=== PATIENT | male | born 1995 | race Caucasian/White ===

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

== ENCOUNTER → 2017-04-25 | Outpatient (CLI) | payer OTHER ==
[2017-04-25 16:44] LABS: ALBUMIN 3.9 gm/dl (3.4-5.0); ALT/SGPT 26 U/L (12-78); AST/SGOT 14 U/L (15-37); BLOOD UREA NITROGEN 20 mg/dl (7-18); CALCIUM 8.8 mg/dl (8.5-10.1); CARBON DIOXIDE 27 mmol/L (21-32); CREATININE 1.16 mg/dl (0.60-1.40); GLUCOSE 177 mg/dl (70-99); POTASSIUM 3.9 mmol/L (3.5-5.1); SODIUM 137 mmol/L (136-145)
[2017-04-25 16:47] LABS: ALKALINE PHOSPHATASE 83 U/L (45-117); CHOLESTEROL 195 mg/dl (0-200); LDL CHOLESTEROL (DIRECT) 145 mg/dl; TOTAL PROTEIN 7.6 gm/dl (6.4-8.2)
[2017-04-26 07:26] LABS: HEMOGLOBIN A1C 7.7 % (4.5-5.6)
== END | disposition home or self-care (01) ==
LOC: C.LABBC 14:06
PROVIDERS: ATTEND Nurse Practitioner Adult Health
DX: F84.5 Asperger's syndrome (principal); E10.9 Type 1 diabetes mellitus without complications; Z79.4 Long term (current) use of insulin; E78.5 Hyperlipidemia, unspecified; E55.9 Vitamin D deficiency, unspecified

== ENCOUNTER → 2017-11-11 | Outpatient (CLI) | payer OTHER ==
[2017-11-12 06:09] LABS: HEMOGLOBIN A1C 8.1 % (4.5-5.6)
== END | disposition home or self-care (01) ==
LOC: C.LAB1850 16:28
PROVIDERS: ATTEND Nurse Practitioner Adult Health
DX: Z00.00 Encounter for general adult medical examination without abnormal findings (principal); E10.9 Type 1 diabetes mellitus without complications; Z79.4 Long term (current) use of insulin; E78.5 Hyperlipidemia, unspecified; E55.9 Vitamin D deficiency, unspecified

== ENCOUNTER 2024-11-15 10:07 | Inpatient (IN) ==
[2024-11-15] MEDS ORDERED: Patient's HEIGHT &/or WEIGHT Needed STA (10:25)
[2024-11-15] MEDS ORDERED: GLUCOSE 40% GEL 15 GM TUBE PO PRN (10:27)
[2024-11-15] MEDS ORDERED: CARBOHYDRATES FOR HYPOGLYCEMIA PO PRN (10:27)
[2024-11-15] MEDS ORDERED: DEXTROSE 50% 50 ML SYRINGE IV PRN (10:27)
[2024-11-15] MEDS ORDERED: GLUCOSE 10 TAB/TUBE PO PRN (10:27)
[2024-11-15] MEDS ORDERED: STAT IV Infusion **Titration per Protocol STA ×2 (10:27→13:40)
[2024-11-15] MEDS ORDERED: GLUCAGON FOR INJ 1 MG VIAL SQ PRN (10:27)
--- NOTE | 2024-11-15 10:28 | Emergency Department Note ---
Impression & Plan DKA, type 1, Acute confusion, Leukocytosis, JUAN LUIS (acute kidney injury), Elevated lactic acid level, Elevated procalcitonin, Acute Lyme disease ED Provider Note HISTORY OF PRESENT ILLNESS: Patient is a 29-year-old male presenting with altered mental status. Grandfather helps provide history. Reports that yesterday the patient was feeling generally unwell and "laid around all day." He reports that the patient started vomiting yesterday and woke up today and was very altered and complaining of "pain everywhere." Patient is intermittently answering questions appropriately. He is a type I diabetic and has been on an insulin pump. However, the patient reports he ran out of pump site changes and is waiting for further supplies so he started to use injections of his short acting insulin. He states he took 30 units of his short acting insulin earlier this morning. Grandfather reports the patient is very confused and not acting appropriately. Patient complains of feeling short of breath and abdominal pain. ROS: as above PHYSICAL EXAM: Constitutional: Patient appears in mild distress. Smells strongly of ketones. HENT: Head: Normocephalic and atraumatic. Eyes: EOMI, PERRL Mouth/Throat: Mucous membranes moist. Neck: Trachea midline. Neck supple. Cardiovascular: RRR, No murmurs, rubs or gallops. Intact distal pulses. Pulmonary/Chest: No respiratory distress. Breath sounds clear and equal bilaterally. 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 Abdominal: Abdomen soft, no tenderness, rebound or guarding. Musculoskeletal: No edema, tenderness or deformity noted. Skin: Warm and dry. No rash, erythema, pallor or cyanosis. No insulin pump or insertion site and no Dexcom noted on the patient's body. Psychiatric: Appropriate mood and affect for situation. Neurological: Alert but slow to respond. CN II-XII grossly intact, moving all extremities equally and fully. MDM: - Vitals signs showed tachycardia and hypertension - History obtained via patient patient's grandfather, given his confusion. History as above. - Chronic conditions affecting care: hypothyroidism; DM-1 - Differential diagnoses include, but are not limited to: DKA; viral syndrome; pneumonia; dysrhythmia; electrolyte abnormality - Order placed for continuous cardiac monitoring. At this time, monitor showed rate of 115 bpm with normal sinus rhythm, per my interpretation. - External medical records reviewed. Diabetes visit note dated 10/20/2024 was reviewed. Patient follows in their clinic for type 1 diabetes. He was supposed to start having a Dexcom that day. - EKG image interpreted by myself showed normal sinus rhythm. Rate tachycardic at 107 bpm. QT 354. No acute ischemic changes. Noted to have an incomplete right bundle branch block. - Laboratory workup interpreted by myself showed leukocytosis (WBC 35.35) with neutrophil predominance; normal PT/INR; elevated lactic acid (3.8); very low bicarb (2 mmol/L); JUAN LUIS (Cr 1.42); hyperglycemia (glucose 503) with elevated anion gap (29); hypermagnesemia (Mg 2.7); hyperphosphatemia (phos 7.3); normal troponin; elevated procalcitonin (1.9) - Repeat lactate after 2L NS still uptrending at 4.6. - Negative anaplasmosis/babesia - Positive serum Lyme - Blood cultures obtained. - Patient initially given 2L NS in ER. Patient's sepsis fluid volume calculation based on ideal body weight is 2508.90 mL. An additional 1L NS ordered. - Given 2g IV rocephin empirically - VBG showed pH <7.00. POC ABG showed pH 6.796. - Potassium stable, so patient was initiated on a IV insulin drip. Patient's heart rate did improve but still remained tachycardic after fluid resuscitation. - UA negative for infection - CT abdomen/pelvis with IV contrast negative for acute pathology per radiology. - CXR image interpreted by myself is negative for pneumonia, per my interpretation. - Discussion was had with rn case manager about patient's case and need for admission - Hospitalist consulted for admission - Patient admitted to [facility] service for further evaluation and management. I have personally spent 66 minutes of critical care time in the direct management of this patient. This includes bedside care, interpretation of diagnostic studies, and testing, discussion with consultants, patient, and family members, and other required patient management activities. This 66 minutes is in excess of all separately billable procedures. 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) Diabetes mellitus type 1, uncontrolled (Chronic) Medical History Aspergers' syndrome Diabetes mellitus type 1, uncontrolled Heterozygous familial hypercholesterolemia 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 Overweight (BMI 25.0-29.9) Vitamin D deficiency Surgical History History of wisdom tooth extraction Family History Mother Depression Father Hypertension Multiple sclerosis Uncle Schizophrenia Grandmother (Paternal) Dyslipidemia Denies family history of Ovarian cancer Prostate cancer Myocardial infarction Breast cancer Colorectal cancer Social History Smoking Status: Never smoker Second Hand Exposure: Yes; Do You Dip or Chew Tobacco: No; Hx Alcohol Use: No Hx Substance Use: No Preferred Language: [place] Visual Impairment: No Limitations Hearing Ability: Normal marital status: Single Current Living Situation: Family current occupational status: employed Feels Safe at Home: Yes Childhood Exposure to Second-Hand Smoke: Yes Dental Care, Regularly: Yes Physical Activity Frequency: 5-6 Times per Week Seatbelt Use: always Sunscreen Use: No Assistive Devices: None Allergies Allergies Allergy/AdvReac Type Severity Reaction Status Date / Time No Known Drug Allergies Allergy Verified 11/15/24 12:00 Home Meds Home Medications Medication Instructions Recorded Confirmed insulin syringe-needle U-100 0.5 12/15/19 10/21/24 mL 30 gauge x 5/16" (BD SafetyGlide Insulin Syringe) cholecalciferol (vitamin D3) 1,250 0 unit PO WK 11/15/24 11/15/24 mcg (50,000 unit) capsule insulin aspart U-100 100 unit/mL 1 sliding scale dose subcut 11/15/24 11/15/24 subcutaneous solution (Novolog DIRECTED U-100 Insulin aspart) levothyroxine 100 mcg tablet 0 mcg PO DAILY 11/15/24 11/15/24 Previous Rx's Medication Instructions Recorded BD Ultra-Fine Christine Pen Needle 32 #90 ea 05/11/20 gauge x 5/32" (pen needle, diabetic) blood sugar diagnostic (Accu-Chek #120 ea 06/18/22 Guide test strips) insulin glargine 100 unit/mL 30 unit (0.3 mL) subcut DAILY #10 10/01/24 subcutaneous solution mL glucagon 1 mg/0.2 mL subcutaneous 1 mg (0.2 mL) subcut ONCE 10/21/24 auto-injector (Gvoke HypoPen hypoglycemia #0.2 mL 1-Pack) rosuvastatin 40 mg tablet 40 mg PO DAILY #90 tabs 10/21/24 Results & Data (ED) Vital Signs Vital Signs - 24 hr 11/15/24 10:09 11/15/24 10:35 11/15/24 10:42 Temperature 36 C L Temperature Source Temporal Artery Scan Pulse Rate 120 H 113 H Pulse Rate [Apical] 102 H Pulse Rhythm Pulse Rhythm [Apical] Regular Pulse Strength [Apical] Normal Respiratory Rate 18 30 H Respiratory Effort / Characteristics Non-Labored Non-Labored Spontaneous Respiratory Depth Normal Shallow Respiratory Pattern Regular Kussmaul Blood Pressure 141/91 H Blood Pressure [Left Arm] 147/91 H Blood Pressure Mean 107 Blood Pressure Mean [Left Arm] 109 Blood Pressure Position [Left Arm] Semi-fowlers Pulse Oximetry 96 100 Oxygen Delivery Method Room Air Room Air Sepsis Recent Fever Within 48 Hours No Sepsis New/Unexplained Change in Mental Status N/A Sepsis Action Taken by Nursing No Action Required 11/15/24 10:42 11/15/24 12:00 Temperature Temperature Source Pulse Rate 102 H Pulse Rate [Apical] 103 H Pulse Rhythm Regular Pulse Rhythm [Apical] Pulse Strength [Apical] Respiratory Rate 30 H 39 H Respiratory Effort / Characteristics Respiratory Depth Normal Respiratory Pattern Blood Pressure Blood Pressure [Left Arm] 160/101 H Blood Pressure Mean Blood Pressure Mean [Left Arm] 120 Blood Pressure Position [Left Arm] Semi-fowlers Pulse Oximetry 100 100 Oxygen Delivery Method Room Air Room Air Sepsis Recent Fever Within 48 Hours Sepsis New/Unexplained Change in Mental Status Sepsis Action Taken by Nursing Laboratory Data 11/15/24 10:42 11/15/24 10:42 Lab Results 11/15/24 11/15/24 11/15/24 Range/Units 10:18 10:42 10:53 WBC 35.35 H* (4.8-10.8) K/ul RBC 5.79 (4.70-6.10) M/uL Hgb 17.0 (14.0-18.0) g/dl POC Hgb (14.0-18.0) g/dl Hct 52.5 H (42.0-52.0) % POC Hct (42-52) % MCV 90.7 (80.0-100.0) fL MCH 29.4 (25.0-34.0) pg MCHC 32.4 (32.0-36.0) g/dL RDW Std Deviation 39.8 (36.4-46.3) fL RDW Coeff of Rima 12.1 (11.5-14.5) % Plt Count 384 (130-400) K/uL MPV 9.3 L (9.4-12.4) fL Immature Gran % (Auto) 3.5 % Neut % (Auto) 74.4 % Lymph % (Auto) 13.5 % [place] % (Auto) 7.8 % Eos % (Auto) 0.1 % Baso % (Auto) 0.7 % Neut # (Auto) 26.33 H (1.40-6.50) K/uL Lymph # (Auto) 4.76 H (1.20-3.40) K/uL [place] # (Auto) 2.76 H (0.11-0.59) K/uL Eos # (Auto) 0.05 (0.00-0.50) K/uL Baso # (Auto) 0.23 H (0.00-0.20) K/uL Immature Gran # (Auto) 1.22 H (0.01-0.20) K/uL Toxic Granulation 1+ Toxic Vacuolation 1+ Polychromasia 1+ PT 10.8 (9.0-12.0) Seconds INR 1.0 (0.9-1.1) POC pH (7.35-7.45) POC pCO2 (35-46) mmHg POC pO2 (80-95) mmHg POC HCO3 (19-24) kristy/L POC Base Excess (-9-1.8) kristy/L POC ABG O2 Sat (90-95) % VBG pH < 7.00 L (7.36-7.41) VBG pCO2 14 L (38-50) mmHg VBG pO2 99 mmHg VBG HCO3 TNP VBG O2 Saturation 97.4 % VBG Base Excess TNP POC Sodium (135-144) mmol/L Sodium 136 (136-145) mmol/L POC Potassium (3.3-5.0) mmol/L Potassium 5.1 (3.5-5.1) mmol/L POC Chloride (101-112) mmol/L Chloride 105 (98-107) mmol/L Carbon Dioxide 2 L* (21-32) mmol/L POC Total CO2 (24-31) mmol/L Anion Gap 29 H (3-11) POC Anion Gap POC BUN (7-18) mg/dl BUN 26 H (6-23) mg/dl Creatinine 1.42 H (0.6-1.4) mg/dl POC Creatinine (0.6-1.3) mg/dl Est Cr Clr Drug Dosing 88.3 ml/min eGFR 69.46 BUN/Creatinine Ratio 18.3 (10-20) Glucose 503 H* (70-99(Fasting)) mg/dl POC Glucose 486 H* 479 H* (70-99) mg/dl POC Glucose (other) (70-99) mg/dl Lactate (0.4-2.0) mmol/L Calcium 9.7 (8.6-10.3) mg/dl POC Ioniz Calcium Johnnie (1.12-1.32) mmol/l Phosphorus 7.3 H (2.5-4.9) mg/dl Magnesium 2.7 H (1.7-2.4) mg/dl Total Bilirubin 0.4 (0.2-1.0) mg/dl AST 20 (13-39) U/L ALT 32 (7-52) U/L Alkaline Phosphatase 139 H (34-104) U/L Troponin I High Sens 14.4 (0-20) pg/ml Total Protein 9.2 H (6.0-8.3) gm/dl Albumin 5.0 (3.4-5.0) gm/dl Globulin 4.2 H (2.5-4.0) gm/dl Albumin/Globulin Ratio 1.2 (0.9-2) Lipase 5 L (11-82) U/L Procalcitonin 1.90 H (0-0.5) ng/ml Urine Comment Anaplasma Smear See Comment Babesia Smear See Comment Lyme Disease Screen Positive H (Negative) 11/15/24 11/15/24 11/15/24 Range/Units 10:55 11:10 11:49 WBC (4.8-10.8) K/ul RBC (4.70-6.10) M/uL Hgb (14.0-18.0) g/dl POC Hgb 15.0 16.7 (14.0-18.0) g/dl Hct (42.0-52.0) % POC Hct 44 49 (42-52) % MCV (80.0-100.0) fL MCH (25.0-34.0) pg MCHC (32.0-36.0) g/dL RDW Std Deviation (36.4-46.3) fL RDW Coeff of Rima (11.5-14.5) % Plt Count (130-400) K/uL MPV (9.4-12.4) fL Immature Gran % (Auto) % Neut % (Auto) % Lymph % (Auto) % [place] % (Auto) % Eos % (Auto) % Baso % (Auto) % Neut # (Auto) (1.40-6.50) K/uL Lymph # (Auto) (1.20-3.40) K/uL [place] # (Auto) (0.11-0.59) K/uL Eos # (Auto) (0.00-0.50) K/uL Baso # (Auto) (0.00-0.20) K/uL Immature Gran # (Auto) (0.01-0.20) K/uL Toxic Granulation Toxic Vacuolation Polychromasia PT (9.0-12.0) Seconds INR (0.9-1.1) POC pH 6.80 L* (7.35-7.45) POC pCO2 14 L (35-46) mmHg POC pO2 73 L (80-95) mmHg POC HCO3 2 L (19-24) kristy/L POC Base Excess < -30.0 L (-9-1.8) kristy/L POC ABG O2 Sat 75.0 L (90-95) % VBG pH (7.36-7.41) VBG pCO2 (38-50) mmHg VBG pO2 mmHg VBG HCO3 VBG O2 Saturation % VBG Base Excess POC Sodium 141 141 (135-144) mmol/L Sodium (136-145) mmol/L POC Potassium 5.1 H 5.4 H (3.3-5.0) mmol/L Potassium (3.5-5.1) mmol/L POC Chloride 120 H (101-112) mmol/L Chloride (98-107) mmol/L Carbon Dioxide (21-32) mmol/L POC Total CO2 < 5 L* < 5 L* (24-31) mmol/L Anion Gap (3-11) POC Anion Gap TNP POC BUN 25 H (7-18) mg/dl BUN (6-23) mg/dl Creatinine (0.6-1.4) mg/dl POC Creatinine 0.9 (0.6-1.3) mg/dl Est Cr Clr Drug Dosing ml/min eGFR BUN/Creatinine Ratio (10-20) Glucose (70-99(Fasting)) mg/dl POC Glucose (70-99) mg/dl POC Glucose (other) 467 H* (70-99) mg/dl Lactate 3.8 H* (0.4-2.0) mmol/L Calcium (8.6-10.3) mg/dl POC Ioniz Calcium Johnnie 1.15 (1.12-1.32) mmol/l Phosphorus (2.5-4.9) mg/dl Magnesium (1.7-2.4) mg/dl Total Bilirubin (0.2-1.0) mg/dl AST (13-39) U/L ALT (7-52) U/L Alkaline Phosphatase (34-104) U/L Troponin I High Sens (0-20) pg/ml Total Protein (6.0-8.3) gm/dl Albumin (3.4-5.0) gm/dl Globulin (2.5-4.0) gm/dl Albumin/Globulin Ratio (0.9-2) Lipase (11-82) U/L Procalcitonin (0-0.5) ng/ml Urine Comment Anaplasma Smear Babesia Smear Lyme Disease Screen (Negative) 11/15/24 11/15/24 11/15/24 Range/Units 11:59 12:01 12:31 WBC (4.8-10.8) K/ul RBC (4.70-6.10) M/uL Hgb (14.0-18.0) g/dl POC Hgb (14.0-18.0) g/dl Hct (42.0-52.0) % POC Hct (42-52) % MCV (80.0-100.0) fL MCH (25.0-34.0) pg MCHC (32.0-36.0) g/dL RDW Std Deviation (36.4-46.3) fL RDW Coeff of Rima (11.5-14.5) % Plt Count (130-400) K/uL MPV (9.4-12.4) fL Immature Gran % (Auto) % Neut % (Auto) % Lymph % (Auto) % [place] % (Auto) % Eos % (Auto) % Baso % (Auto) % Neut # (Auto) (1.40-6.50) K/uL Lymph # (Auto) (1.20-3.40) K/uL [place] # (Auto) (0.11-0.59) K/uL Eos # (Auto) (0.00-0.50) K/uL Baso # (Auto) (0.00-0.20) K/uL Immature Gran # (Auto) (0.01-0.20) K/uL Toxic Granulation Toxic Vacuolation Polychromasia PT (9.0-12.0) Seconds INR (0.9-1.1) POC pH (7.35-7.45) POC pCO2 (35-46) mmHg POC pO2 (80-95) mmHg POC HCO3 (19-24) kristy/L POC Base Excess (-9-1.8) krisyt/L POC ABG O2 Sat (90-95) % VBG pH (7.36-7.41) VBG pCO2 (38-50) mmHg VBG pO2 mmHg VBG HCO3 VBG O2 Saturation % VBG Base Excess POC Sodium (135-144) mmol/L Sodium (136-145) mmol/L POC Potassium (3.3-5.0) mmol/L Potassium (3.5-5.1) mmol/L POC Chloride (101-112) mmol/L Chloride (98-107) mmol/L Carbon Dioxide (21-32) mmol/L POC Total CO2 (24-31) mmol/L Anion Gap (3-11) POC Anion Gap POC BUN (7-18) mg/dl BUN (6-23) mg/dl Creatinine (0.6-1.4) mg/dl POC Creatinine (0.6-1.3) mg/dl Est Cr Clr Drug Dosing ml/min eGFR BUN/Creatinine Ratio (10-20) Glucose (70-99(Fasting)) mg/dl POC Glucose 424 H* (70-99) mg/dl POC Glucose (other) (70-99) mg/dl Lactate 4.6 H* (0.4-2.0) mmol/L Calcium (8.6-10.3) mg/dl POC Ioniz Calcium Johnnie (1.12-1.32) mmol/l Phosphorus (2.5-4.9) mg/dl Magnesium (1.7-2.4) mg/dl Total Bilirubin (0.2-1.0) mg/dl AST (13-39) U/L ALT (7-52) U/L Alkaline Phosphatase (34-104) U/L Troponin I High Sens (0-20) pg/ml Total Protein (6.0-8.3) gm/dl Albumin (3.4-5.0) gm/dl Globulin (2.5-4.0) gm/dl Albumin/Globulin Ratio (0.9-2) Lipase (11-82) U/L Procalcitonin (0-0.5) ng/ml Urine Comment Anaplasma Smear Babesia Smear Lyme Disease Screen (Negative) 11/15/24 Range/Units 12:58 WBC (4.8-10.8) K/ul RBC (4.70-6.10) M/uL Hgb (14.0-18.0) g/dl POC Hgb (14.0-18.0) g/dl Hct (42.0-52.0) % POC Hct (42-52) % MCV (80.0-100.0) fL MCH (25.0-34.0) pg MCHC (32.0-36.0) g/dL RDW Std Deviation (36.4-46.3) fL RDW Coeff of Rima (11.5-14.5) % Plt Count (130-400) K/uL MPV (9.4-12.4) fL Immature Gran % (Auto) % Neut % (Auto) % Lymph % (Auto) % [place] % (Auto) % Eos % (Auto) % Baso % (Auto) % Neut # (Auto) (1.40-6.50) K/uL Lymph # (Auto) (1.20-3.40) K/uL [place] # (Auto) (0.11-0.59) K/uL Eos # (Auto) (0.00-0.50) K/uL Baso # (Auto) (0.00-0.20) K/uL Immature Gran # (Auto) (0.01-0.20) K/uL Toxic Granulation Toxic Vacuolation Polychromasia PT (9.0-12.0) Seconds INR (0.9-1.1) POC pH (7.35-7.45) POC pCO2 (35-46) mmHg POC pO2 (80-95) mmHg POC HCO3 (19-24) kristy/L POC Base Excess (-9-1.8) kristy/L POC ABG O2 Sat (90-95) % VBG pH (7.36-7.41) VBG pCO2 (38-50) mmHg VBG pO2 mmHg VBG HCO3 VBG O2 Saturation % VBG Base Excess POC Sodium (135-144) mmol/L Sodium (136-145) mmol/L POC Potassium (3.3-5.0) mmol/L Potassium (3.5-5.1) mmol/L POC Chloride (101-112) mmol/L Chloride (98-107) mmol/L Carbon Dioxide (21-32) mmol/L POC Total CO2 (24-31) mmol/L Anion Gap (3-11) POC Anion Gap POC BUN (7-18) mg/dl BUN (6-23) mg/dl Creatinine (0.6-1.4) mg/dl POC Creatinine (0.6-1.3) mg/dl Est Cr Clr Drug Dosing ml/min eGFR BUN/Creatinine Ratio (10-20) Glucose (70-99(Fasting)) mg/dl POC Glucose 367 H* (70-99) mg/dl POC Glucose (other) (70-99) mg/dl Lactate (0.4-2.0) mmol/L Calcium (8.6-10.3) mg/dl POC Ioniz Calcium Johnnie (1.12-1.32) mmol/l Phosphorus (2.5-4.9) mg/dl Magnesium (1.7-2.4) mg/dl Total Bilirubin (0.2-1.0) mg/dl AST (13-39) U/L ALT (7-52) U/L Alkaline Phosphatase (34-104) U/L Troponin I High Sens (0-20) pg/ml Total Protein (6.0-8.3) gm/dl Albumin (3.4-5.0) gm/dl Globulin (2.5-4.0) gm/dl Albumin/Globulin Ratio (0.9-2) Lipase (11-82) U/L Procalcitonin (0-0.5) ng/ml Urine Comment Anaplasma Smear Babesia Smear Lyme Disease Screen (Negative) Administered Medications Insulin Human Regular 250 (units/ Sodium Chloride) 250 mls @ 9.7 mls/hr IV .Q24H VENUS; Protocol Stop: 12/15/24 10:29 Last Titration: 11/15/24 13:08 Dose: 9.7 unit/hr, 9.7 mls/hr Documented By: ALICIA Co-signed By: BETTY Titration: 11/15/24 12:13 Dose: 9.7 unit/hr, 9.7 mls/hr Documented By: ALICIA Co-signed By: BETTY Admin: 11/15/24 10:57 Dose: 8.1 unit/hr, 8.1 mls/hr Documented By: Co-signed By: DENISE Sodium Chloride (Nss) 1,000 mls @ 999 mls/hr IV .Q1H1M ONE Stop: 11/15/24 13:42 Last Admin: 11/15/24 13:00 Dose: 999 mls/hr Documented By: ALICIA Insulin Aspart (Insulin Aspart Per Unit Charge) 0 units SC ACHS VENUS Stop: 12/15/24 11:29 Last Admin: 11/15/24 11:36 Dose: Not Given Documented By: ALICIA Co-signed By: BETYT Discontinued Medications Sodium Chloride (Nss) 2,000 mls @ 999 mls/hr IV .Q2H1M ONE Stop: 11/15/24 12:25 Last Infusion: 11/15/24 12:50 Dose: Infused Documented By: Admin: 11/15/24 10:39 Dose: 999 mls/hr Documented By: Ceftriaxone Sodium (Rocephin) 2,000 mg in 50 mls @ 100 mls/hr IV NOW STA Stop: 11/15/24 12:06 Last Infusion: 11/15/24 13:00 Dose: Infused Documented By: Admin: 11/15/24 12:30 Dose: 100 mls/hr Documented By: ALICIA Ioversol (Optiray 320 100ml) 90 ml IV ONCE ONE Stop: 11/15/24 12:21 Last Admin: 11/15/24 12:20 Dose: 90 ml Documented By: YAQUELIN Miscellaneous (Dka Goal Range 150-250 Mg/Dl) 1 each N/A ONE ONE Stop: 11/15/24 10:28 Last Admin: 11/15/24 12:10 Dose: Not Given Documented By: ALICIA Imaging Data Radiologist's Impression: Abdomen/Pelvis CT 11/15/24 11:54 CT SCAN OF THE ABDOMEN AND PELVIS WITH IV CONTRAST CLINICAL HISTORY: Generalized abdominal pain. Vomiting. Diabetic ketoacidosis. COMPARISON STUDY: No priors TECHNIQUE: Following the IV administration of 90 cc of Optiray 320, CT scan of the abdomen and pelvis is performed from the lung bases to the proximal femora. Images are reviewed in the axial, sagittal, and coronal planes. IV contrast was administered without complication. A dose lowering technique was utilized adhering to the principles of ALARA. The examination is degraded by motion artifact. CT DOSE: 967.2 mGy.cm FINDINGS: Lung bases: The heart is normal in size and without pericardial effusion. The lung bases are clear. Liver: The contrast-enhanced liver is normal in size and contour. Attenuation is diffusely diminished indicating steatosis. There is no intrahepatic biliary ductal dilatation. The hepatic veins and portal veins are patent. Gallbladder: Unremarkable. Spleen: Normal in size and attenuation. Pancreas: Unremarkable. Adrenal glands: Unremarkable. Kidneys: The contrast enhanced kidneys are normal in size and without hydronephrosis. Fullness of the renal collecting systems is likely related to bladder distention. The kidneys enhance symmetrically. Abdominal vasculature: The abdominal aorta is normal in course and caliber. Bowel: No bowel obstruction is seen. The appendix is well-visualized and normal. Peritoneum: There is no intraperitoneal free air or abdominal ascites. There is a fat-containing umbilical hernia. Lymphadenopathy: None. Pelvic viscera: The bladder is markedly distended but otherwise normal in appearance. The prostate and seminal vesicles are normal as imaged Skeletal structures: No lytic or blastic lesions are seen. IMPRESSION: 1. No acute infectious or inflammatory findings are identified in the abdomen or pelvis. 2. Marked bladder distention. 3. Hepatic steatosis. 4. Additional findings as above. ACT 112: Negative or not required by law. Electronically signed by: Bebeto Mancini M.D. 11/15/2024 12:49 PM Chest X-Ray 11/15/24 11:55 SINGLE VIEW CHEST CLINICAL HISTORY: Sepsis FINDINGS: 2 AP, portable, upright chest radiographs are obtained. No prior studies are available for comparison at the time of dictation. The cardiomediastinal silhouette is unremarkable. The lungs and pleural spaces are clear. No pneumothorax is seen. The bony thorax is grossly intact. IMPRESSION: No active disease in the chest. ACT 112: Negative or not required by law. Electronically signed by: Bebeto Mancini M.D. 11/15/2024 12:49 PM Discharge Plan Visit Data Chief Complaint: Illness Stated Complaint: FEELS LIKE DYING PT STATED ED Provider: Melissa White Discharge Problem: DKA, type 1, Acute confusion, Leukocytosis, JUAN LUIS (acute kidney injury), Elevated lactic acid level, Elevated procalcitonin, Acute Lyme disease Condition: Serious Forms Stand Alone Forms: [facility] Prescriptions Prescriptions: No Action (DME) pen needle, diabetic [BD Ultra-Fine Christine Pen Needle] 32 gauge x 5/32" needle See Rx Instructions .ROUTE .MEDSUPPLY Qty: 90 0RF Rx Instructions: once daily for pump failure insulin glargine U-300 conc [Toujeo SoloStar U-300 Insulin] 300 unit/mL (1.5 mL) insulin pen 0 unit subcut DIRECTED 0RF Patient Comments: Unable to verify w/ pt at this date/time. Not on file w/ Pharmacy. Original Directions: 0 units subcut as directed. 11/15/24 insulin glargine 100 unit/mL solution 30 unit subcut DAILY Qty: 10 3RF Rx Instructions: back up for pump failure (DME) insulin syringe-needle U-100 [BD SafetyGlide Insulin Syringe] 0.5 mL 30 gauge x 5/16" syringe See Rx Instructions .ROUTE .MEDSUPPLY Rx Instructions: use 4 per day (DME) Accu-Chek Guide test strips Strip See Rx Instructions .Route Qty: 120 5RF Rx Instructions: test 4 times daily Gvoke HypoPen 1-Pack 1 mg/0.2 mL auto-injector 1 mg subcut ONCE Qty: 0.2 0RF Rx Instructions: as needed for hypoglycemia rosuvastatin 40 mg tablet 40 mg PO DAILY Qty: 90 3RF levothyroxine 100 mcg tablet 0 mcg PO DAILY Patient Comments: Unable to verify w/ pt at this date/time. Not on file w/ Pharmacy. Original Directions: 100mcg by mouth once daily. 11/15/24 insulin aspart U-100 [Novolog U-100 Insulin aspart] 100 unit/mL solution 1 sliding scale dose subcut DIRECTED Rx Instructions: subcutaneously inject 1 unit per 7 carbs; TDD 110 units; cholecalciferol (vitamin D3) 1,250 mcg (50,000 unit) capsule 0 unit PO WK Patient Comments: Unable to verify w/ pt at this date/time. Per pharmacy, never filled. Original Directions: 50,000 unit once weekly. 11/15/24 Referrals Referrals: Araceli Macias MD [Primary Care Provider] -
[2024-11-15] MEDS: SODIUM CHLORIDE 0.9% 2,000 ML IV ONE (10:39)
[2024-11-15 10:51] LABS: Oxygen Saturation VBG 97.4 %; PCO2 VBG 14 mmHg (38-50); PO2 VBG 99 mmHg; pH VBG < 7.00 (7.36-7.41)
[2024-11-15] MEDS: INSULIN REGULAR 250 UNITS in SODIUM CHLORIDE 0.9% 247.5 ML IV SCH (10:57)
[2024-11-15 11:05] LABS: Hematocrit (blood only) 52.5 % (42.0-52.0); Hemoglobin 17.0 g/dl (14.0-18.0); Mean Corpuscular Hemoglobin 29.4 pg (25.0-34.0); Mean Corpuscular Volume 90.7 fL (80.0-100.0); Platelet Count 384 K/uL (130-400); RDW Standard Deviation 39.8 fL (36.4-46.3); Red Blood Count 5.79 M/uL (4.70-6.10)
[2024-11-15 11:06] LABS: White Blood Count 35.35 K/ul (4.8-10.8)
[2024-11-15 11:20] LABS: Immature Granulocytes # (auto) 1.22 K/uL (0.01-0.20); Immature Granulocytes % (auto) 3.5 %; Polychromasia 1+; Toxic Granulation 1+; Toxic Vacuolation 1+
[2024-11-15 11:25] LABS: INR 1.0 (0.9-1.1); Prothrombin Time 10.8 Seconds (9.0-12.0)
[2024-11-15] MEDS: INSULIN ASPART PER UNIT CHARGE SC SCH (11:36)
[2024-11-15 11:44] LABS: Lyme Screen Rflx Confirmation Positive (Negative)
[2024-11-15 11:51] LABS: Alanine Aminotransferase 32.0 U/L (7-52); Albumin Globulin Ratio 1.2 (0.9-2); Alkaline Phosphatase 139.0 U/L (34-104); Anion Gap 29.0 (3-11); Bilirubin,Total 0.4 mg/dl (0.2-1.0); Blood Urea Nitrogen 26.0 mg/dl (6-23); Calcium 9.7 mg/dl (8.6-10.3); Carbon Dioxide 2.0 mmol/L (21-32); Chloride 105.0 mmol/L (98-107); Creatinine Clr Calc Pharmacy 88.3 ml/min; Globulin 4.2 gm/dl (2.5-4.0); Glucose 503.0 mg/dl (70-99(Fasting)); Lipase 5.0 U/L (11-82); Magnesium 2.7 mg/dl (1.7-2.4); Potassium 5.1 mmol/L (3.5-5.1); Sodium 136.0 mmol/L (136-145); Total Protein 9.2 gm/dl (6.0-8.3)
[2024-11-15 12:03] LABS: iSTAT Art Bld Gas Base Excess < -30.0 meg/L (-9-1.8)
[2024-11-15] MEDS: DKA GOAL RANGE 150-250 mg/dl ONE (12:10)
[2024-11-15] MEDS: OPTIRAY 320 100ml IV ONE (12:20)
[2024-11-15] MEDS: cefTRIAXone SODIUM 2,000 MG/50 ML BAG IV STA (12:30)
--- NOTE | 2024-11-15 12:50 | XRay Report ---
SINGLE VIEW CHEST CLINICAL HISTORY: Sepsis FINDINGS: 2 AP, portable, upright chest radiographs are obtained. No prior studies are available for comparison at the time of dictation. The cardiomediastinal silhouette is unremarkable. The lungs and pleural spaces are clear. No pneumothorax is seen. The bony thorax is grossly intact. IMPRESSION: No active disease in the chest. ACT 112: Negative or not required by law. Electronically signed by: Bebeto Mancini M.D. 11/15/2024 12:49 PM
--- NOTE | 2024-11-15 12:50 | CT Scan Report ---
CT SCAN OF THE ABDOMEN AND PELVIS WITH IV CONTRAST CLINICAL HISTORY: Generalized abdominal pain. Vomiting. Diabetic ketoacidosis. COMPARISON STUDY: No priors TECHNIQUE: Following the IV administration of 90 cc of Optiray 320, CT scan of the abdomen and pelvi s is performed from the lung bases to the proximal femora. Images are reviewed in the axial, sagittal , and coronal planes. IV contrast was administered without complication. A dose lowering technique wa s utilized adhering to the principles of ALARA. The examination is degraded by motion artifact. CT DOSE: 967.2 mGy.cm FINDINGS: Lung bases: The heart is normal in size and without pericardial effusion. The lung bases are clear. Liver: The contrast-enhanced liver is normal in size and contour. Attenuation is diffusely diminishe d indicating steatosis. There is no intrahepatic biliary ductal dilatation. The hepatic veins and por stanley veins are patent. Gallbladder: Unremarkable. Spleen: Normal in size and attenuation. Pancreas: Unremarkable. Adrenal glands: Unremarkable. Kidneys: The contrast enhanced kidneys are normal in size and without hydronephrosis. Fullness of the renal collecting systems is likely related to bladder distention. The kidneys enhance symmetrically. Abdominal vasculature: The abdominal aorta is normal in course and caliber. Bowel: No bowel obstruction is seen. The appendix is well-visualized and normal. Peritoneum: There is no intraperitoneal free air or abdominal ascites. There is a fat-containing umbi lical hernia. Lymphadenopathy: None. Pelvic viscera: The bladder is markedly distended but otherwise normal in appearance. The prostate an d seminal vesicles are normal as imaged Skeletal structures: No lytic or blastic lesions are seen. IMPRESSION: 1. No acute infectious or inflammatory findings are identified in the abdomen or pelvis. 2. Marked bladder distention. 3. Hepatic steatosis. 4. Additional findings as above. ACT 112: Negative or not required by law. Electronically signed by: Bebeto Mancini M.D. 11/15/2024 12:49 PM
[2024-11-15] MEDS: SODIUM CHLORIDE 0.9% 1,000 ML IV ONE ×2 (13:00→13:52)
--- NOTE | 2024-11-15 13:13 | History & Physical Report ---
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 Has an insulin pump but not sure if it has been functioning properly the past 2- 3 days. Notes he has felt like this previously, but hasn't gotten this bad before. Requires admission for medical stabilization, continuous VS monitoring, and serial labs to ensure resolution. #Diabetic Ketoacidosis #DM1, poorly controlled All relevant labs improving: Glucose 503 -> 302 , Lactate 4.6 -> 2.6, anion gap 29 -> 21 S/p 3L NS bolus, currently receiving KCl/D5/NS at 150cc/hr Continue IV fluids, IV insulin per protocol, switch to subQ basal/bolus once anion gap has resolved Obtaining q1h POC glucose, q4 BMP, VBG, mag, phos; CBC AM Pharm glycemic consult following, appreciate adjustments as necessary - CBC, BMP, VBG AM #Leukocytosis WBCs 35.35 initially, reported to have some vomiting and possible urinary retention however those symptoms have improved - started on ceftriaxone IV empirically, however in the absence of no overt signs or symptoms of infection likely the elevation is due to significant acidosis and the stress on the body that has caused Discontinuing CTX at this time, may add abx back on if clinical suspicion points to infectious etiology #Acute Kidney Injury Likely 2/2 dehydration, lack of kidney perfusion Creatinine resolving 1.42 -> 1.27 Continue IVF, may start PO intake once anion gap resolves As he has tolerated water already, allowing some gatorade per request #Executive functioning deficit Will need extra help in going over pump instructions and return instructions prior to discharge, with grandfather too so he know what to look out for and to act sooner clinical informatics educator and case mgmt consulted #Lyme screen positive However negative Lyme IgM and IgG Anaplasma and Babesia also appear negative Will ask pt specifically about Lyme or tick concern in AM, but no current concern of tickborne illness Chronic, stable: hypothyroidism- continue levothyroxine familial hypercholesterolemia- may hold statin until diet once AG resolved VTE ppx: SCDs Dispo: PCU tele History of Present Illness Chief Complaint: DKA Primary Care Provider: Araceli Macias MD Devan is a 29yo M with PMHx diabetes mellitus type 1 on insulin pump, hypoth yroidism due to Delfin's thyroiditis, heterozygous familial hypercholesterolemia, and executive function disorder admitted for DKA. States he started feeling bad 2-3 days ago with abdominal pain, vomiting, and generalized weakness. Was brought in today by grandfather but he is not present at current encounter. States he has an insulin pump but not sure if it has been functioning properly. Notes he has felt like this previously, but hasn't gotten this bad before. Currently noting pain "all over" especially the bottom of his ribs, sore throat, and significant thirst. No nausea, vomiting, or abdominal pain at htis time. States he usually has to take "at least 72" units of insulin per day combined long- and short-acting. Denies recent fever, headache, neck pain, dysuria. ER course: 1L NS bolus x3 - started on insulin at 6.2 units/hr - started on ceftriaxone - morphine 1mg IV Living situ: lives in private home with grandfather, however based on pt's low level of executive functioning likely doesn't have the support he needs Allergies Allergy/AdvReac Type Severity Reaction Status Date / Time No Known Drug Allergies Allergy Verified 11/15/24 12:00 Home Medications Medication Instructions Recorded Confirmed Type insulin syringe-needle U-100 0.5 12/15/19 10/21/24 History mL 30 gauge x 5/16" (BD SafetyGlide Insulin Syringe) BD Ultra-Fine Christine Pen Needle 32 #90 ea 05/11/20 10/21/24 Rx gauge x 5/32" (pen needle, diabetic) blood sugar diagnostic (Accu-Chek #120 ea 06/18/22 10/21/24 Rx Guide test strips) insulin glargine 100 unit/mL 30 unit (0.3 mL) subcut DAILY #10 10/01/24 11/15/24 Rx subcutaneous solution mL glucagon 1 mg/0.2 mL subcutaneous 1 mg (0.2 mL) subcut ONCE 10/21/24 11/15/24 Rx auto-injector (Gvoke HypoPen hypoglycemia #0.2 mL 1-Pack) rosuvastatin 40 mg tablet 40 mg PO DAILY #90 tabs 10/21/24 11/15/24 Rx cholecalciferol (vitamin D3) 1,250 0 unit PO WK 11/15/24 11/15/24 History mcg (50,000 unit) capsule insulin aspart U-100 100 unit/mL 1 sliding scale dose subcut 11/15/24 11/15/24 History subcutaneous solution (Novolog DIRECTED U-100 Insulin aspart) levothyroxine 100 mcg tablet 0 mcg PO DAILY 11/15/24 11/15/24 History Past Med/Surg History Problem List (Updated 11/15/24 @ 14:36 by Bahman Plata DO) DKA (diabetic ketoacidosis) Acute Lyme disease (Acute) Elevated procalcitonin (Acute) Elevated lactic acid level (Acute) JUAN LUIS (acute kidney injury) (Acute) Leukocytosis (Acute) Acute confusion (Acute) DKA, type 1 (Acute) Executive function deficit Vitamin D deficiency (Chronic) Overweight (BMI 25.0-29.9) (Chronic) Heterozygous familial hypercholesterolemia (Chronic) 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 (Chronic) Diabetes mellitus type 1, uncontrolled (Chronic) Medical History Aspergers' syndrome Diabetes mellitus type 1, uncontrolled Heterozygous familial hypercholesterolemia 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 Overweight (BMI 25.0-29.9) Vitamin D deficiency Surgical History History of wisdom tooth extraction Family History Mother Depression Father Hypertension Multiple sclerosis Uncle Schizophrenia Grandmother (Paternal) Dyslipidemia Denies family history of Ovarian cancer Prostate cancer Myocardial infarction Breast cancer Colorectal cancer Social History Smoking Status: Never smoker Second Hand Exposure: Yes; Do You Dip or Chew Tobacco: No; Hx Alcohol Use: No Hx Substance Use: No Preferred Language: Khmer Visual Impairment: No Limitations Hearing Ability: Normal Cylinder Steamer Required: No Beliefs That Will Affect Care: None marital status: Single Current Living Situation: Other Current Living Situation Comment: grandfather current occupational status: employed Other Information That Helps Us Care for You: No Feels Safe at Home: Yes Safety Concerns: Feels Safe At This Time Childhood Exposure to Second-Hand Smoke: Yes Dental Care, Regularly: Yes Physical Activity Frequency: 5-6 Times per Week Seatbelt Use: always Sunscreen Use: No Assistive Devices: Other Assistive Devices Comment: insulin pump Physical Exam Physical Exam: Constitutional: A&Ox3, appearing in moderate distress, tachypneic HEENT: dry oral mucus membranes; EOM intact, anicteric sclerae CV: tachycardic regular rhythm, +s1/s2, no m/r/g, radial pulses 2+ b/l Respiratory: clear to auscultation b/l, no w/r/R GI/Abd: +BS, abdomen soft, no hepatosplenomegaly, nondistended, nontender to palpation MSK: 5/5 strength in b/l UE and LE, no gross deformities Skin: mild papular rash to lower half of b/l LE without base of erythema/swelling/warmth Neuro: no facial droop, no focal deficits, wiggles toes on command Results & Data Results & Data Vital Signs (Past 12 Hours) Vital Signs Temp Pulse Pulse Resp BP BP Pulse Ox 11/15/24 12:00 103 H 39 H 160/101 H 100 11/15/24 10:42 102 H 30 H 100 11/15/24 10:42 102 H 30 H 147/91 H 100 11/15/24 10:35 113 H 11/15/24 10:09 36 C L 120 H 18 141/91 H 96 O2 Del Method 11/15/24 12:00 Room Air 11/15/24 10:42 Room Air 11/15/24 10:42 Room Air 11/15/24 10:35 11/15/24 10:09 Room Air Supervising Physician Co-Signing Physician Notes I personally examined the patient and verified all gallegos points of history and exam, discussed case, and agree with decision making with Dr Plata Feeling better. Very thirsty. Vitals noted, in general he is awake and alert pleasant a little bit restless but no acute distress. HEENT normocephalic atraumatic mucous membranes dry. Cardio still tachycardic, breathing by the time I see him is no longer rapid or labored. Neuro shows cranial nerves II through XII are grossly intact gross motor and sensory are intact. Labs and diagnostics noted. DKAappears to be due to his pump running out of insulin. The very difficult part will be that it seems that his difficulty in executive function may make it hard for him to understand the critical importance of glycemic management. Tried to start to discuss rhythm and very concrete terms, but obviously right now he is also quite sick so definitely not the best time to be able to make a good connection or fill knowledge gapswe will continue to try. IV fluids, insulin management, supportive care. His leukocytosis is almost certainly stress responseno obvious focal signs or symptoms of infection. Continue to follow, but no clear need for ongoing empiric antibiotics. Lyme screen positivenonspecific, no clear symptoms, but we are in an endemic area. Follow labs and treat if positive. Otherwise as above. Resident Activity Tracking Resident Involvement: Resident Care Provided Care Provided: Adult Hospital Medicine (1) DKA (diabetic ketoacidosis) Diabetes mellitus complication detail: without coma Diabetes mellitus type: type 1 Qualified Code(s): E10.10 - Type 1 diabetes mellitus with ketoacidosis without coma (2) Diabetes mellitus type 1, uncontrolled Glycemic state: with hyperglycemia Qualified Code(s): E10.65 - Type 1 diabetes mellitus with hyperglycemia
[2024-11-15 13:28] LABS: Appearance Urine Clear (Clear); Bacteria Urine Automated None Seen (None Seen); Epithelial Cell Urine Auto 0-2 /hpf (0-2); Glucose Urine UA 3+ (Negative); RBC Urine Automated 0-2 /hpf (0-2); WBC Urine Automated 0-5 /hpf (0-5)
[2024-11-15] MEDS ORDERED: PHARMACY GLYCEMIC MGMT CONSULT PRN (13:40)
[2024-11-15] MEDS ORDERED: INSULIN REGULAR 250 UNITS in SODIUM CHLORIDE 0.9% 247.5 ML IV SCH (13:45)
[2024-11-15] MEDS ORDERED: PENDING 1/2NSS+20mEq KCL IVF SCH (13:45)
[2024-11-15] MEDS ORDERED: PENDING D5 1/2NS+20mEq KCL IVF SCH (13:45)
[2024-11-15 13:51] LABS: Cast Urine Automated 0-2 /lpf (0-2)
[2024-11-15] MEDS ORDERED: DKA GOAL RANGE 150-250 mg/dl ONE (13:51)
[2024-11-15] MEDS: MoRPHine SULFATE 2 MG/ML CARP IV STA (13:52)
[2024-11-15 14:26] LABS: Oxygen Saturation VBG 81.0 %; PCO2 VBG 27 mmHg (38-50); PO2 VBG 50 mmHg; pH VBG < 7.00 (7.36-7.41)
--- NOTE | 2024-11-15 14:43 | Pharmacy Report ---
Pharmacy Glycemic Short Note 2 - Date of Service November 15, 2024 - Glycemic Short BSG Results (Last 24 hours): 11/15/24 11/15/24 11/15/24 10:18 10:42 10:53 Glucose 503 H* POC Glucose 486 H* 479 H* POC Glucose (other) 11/15/24 11/15/24 11/15/24 11:10 12:01 12:58 Glucose POC Glucose 424 H* 367 H* POC Glucose (other) 467 H* 11/15/24 14:02 Glucose POC Glucose 289 H POC Glucose (other) OUTPATIENT ANTIDIABETIC REGIMEN: * Lantus 30 units SC daily * Novolog SC AC: CF 20, CR 7, BSG goal 90-120 mg/dL * Previously on insulin pump but ran out of pump supplies so has been doing MDI per Diabetes visit from 10/20/24 - plan is for patient to start Dexcom and insulin pump soon HbA1c: * 10.5% (10/19/24) ASSESSMENT: * 29 yo M admitted on 11/15/24 secondary to diabetic ketoacidosis. Pharmacy has been consulted to assist with inpatient glycemic management. Patient is a Type 1 diabetic as an outpatient. Please refer to outpatient regimen and most recent HbA1c above. * Admission labs: * Potassium 5.1, CO2 2, Anion Gap 29, SCr 1.42, BSG 503, Lactate 3.8, Procalcitonin 1.90, VBG pH < 7, urine ketones 4+ * Patient has received 4 L of NS and now being started on Plasmalyte A at 150 mL/hr. Pending orders to add dextrose and potassium to fluids on board. IV insulin infusion started at 8.1 units/hr, went up to 9.7 units/hr, now running at 7.8 units/hr. BSGs have been [phone] mg/dL. * Patient is currently confused and NPO. All history obtained from recent diabet es visit. clinical trial educator consulted. * Will continue with IV insulin infusion for the foreseeable future. Will give a small dose of Lantus so basal is on board in case transition can occur tomorrow morning. PLAN FOR INPATIENT GLYCEMIC CONTROL: * IV insulin infusion * Goal BSG 150-250 mg/dL * Current rate: 7.8 units/hr * Basal insulin * Lantus 10 units SC x 1 at HS * Bolus insulin * NovoLog per scale ACHS or Q6hrs while NPO * Goal Range: Low 150 mg/dL - High 250 mg/dL - per calculator for now * Correction Factor: [] mg/dL/unit * Nutritional / Prandial insulin per carb ratio of 1 unit per [] grams CHO consumed
[2024-11-15] MEDS ORDERED: ONDANSETRON INJ 2 MG/ML 2 ML VIAL IV PRN (14:44)
[2024-11-15] MEDS ORDERED: MELATONIN 3 MG TAB PO PRN (14:44)
[2024-11-15] MEDS ORDERED: MoRPHine SULFATE 2 MG/ML CARP IV PRN (14:44)
[2024-11-15 14:51] LABS: Anion Gap 21.0 (3-11); Blood Urea Nitrogen 22.0 mg/dl (6-23); Calcium 8.2 mg/dl (8.6-10.3); Carbon Dioxide 4.0 mmol/L (21-32); Chloride 116.0 mmol/L (98-107); Creatinine Clr Calc Pharmacy 98.7 ml/min; Glucose 302.0 mg/dl (70-99(Fasting)); Magnesium 2.3 mg/dl (1.7-2.4); Potassium 5.0 mmol/L (3.5-5.1); Sodium 141.0 mmol/L (136-145)
[2024-11-15] MEDS: D5W AND 1/2NSS + 20MEQ KCL 20 MEQ/1,000 ML BAG IV SCH (15:41)
[2024-11-15 16:04] LABS: Lyme Ab IgG 2nd Tier Confirm Negative (Negative); Lyme Ab IgM 2nd Tier Confirm Negative (Negative)
[2024-11-15] MEDS: PLASMA-LYTE A 1,000 ML IV SCH (16:14)
[2024-11-15] MEDS ORDERED: INSULIN ASPART PER UNIT CHARGE SC SCH (16:30)
--- NOTE | 2024-11-15 18:27 | Billing Data ---
Date of Service November 15, 2024 Coding Level of Care Code 77419 INT INP/OBS CARE
[2024-11-15] MEDS: ACETAMINOPHEN 325 MG TAB PO PRN (19:15)
[2024-11-15 19:25] LABS: Anion Gap 17.0 (3-11); Blood Urea Nitrogen 19.0 mg/dl (6-23); Calcium 8.2 mg/dl (8.6-10.3); Carbon Dioxide 4.0 mmol/L (21-32); Chloride 118.0 mmol/L (98-107); Creatinine Clr Calc Pharmacy 102.0 ml/min; Glucose 206.0 mg/dl (70-99(Fasting)); Magnesium 2.3 mg/dl (1.7-2.4); Potassium 4.6 mmol/L (3.5-5.1); Sodium 139.0 mmol/L (136-145)
[2024-11-15] MEDS ORDERED: LANTUS PER UNIT CHARGE SC ONE (21:00)
[2024-11-15 22:21] LABS: Anion Gap 14.0 (3-11); Blood Urea Nitrogen 17.0 mg/dl (6-23); Calcium 8.4 mg/dl (8.6-10.3); Carbon Dioxide 5.0 mmol/L (21-32); Chloride 118.0 mmol/L (98-107); Creatinine Clr Calc Pharmacy 109.0 ml/min; Glucose 181.0 mg/dl (70-99(Fasting)); Magnesium 2.2 mg/dl (1.7-2.4); Potassium 4.3 mmol/L (3.5-5.1); Sodium 137.0 mmol/L (136-145)
[2024-11-16 02:36] LABS: Anion Gap 10.0 (3-11); Blood Urea Nitrogen 16.0 mg/dl (6-23); Calcium 8.3 mg/dl (8.6-10.3); Carbon Dioxide 8.0 mmol/L (21-32); Chloride 119.0 mmol/L (98-107); Creatinine Clr Calc Pharmacy 118.3 ml/min; Glucose 170.0 mg/dl (70-99(Fasting)); Magnesium 2.0 mg/dl (1.7-2.4); Potassium 3.8 mmol/L (3.5-5.1); Sodium 137.0 mmol/L (136-145)
[2024-11-16] MEDS: LEVOTHYROXINE SODIUM 100 MCG TABLET PO SCH (05:48)
[2024-11-16 06:04] LABS: Anion Gap 9.0 (3-11); Blood Urea Nitrogen 15.0 mg/dl (6-23); Calcium 8.2 mg/dl (8.6-10.3); Carbon Dioxide 10.0 mmol/L (21-32); Chloride 118.0 mmol/L (98-107); Creatinine Clr Calc Pharmacy 130.6 ml/min; Glucose 155.0 mg/dl (70-99(Fasting)); Potassium 3.5 mmol/L (3.5-5.1); Sodium 137.0 mmol/L (136-145)
[2024-11-16 06:11] LABS: Magnesium 1.9 mg/dl (1.7-2.4)
--- NOTE | 2024-11-16 06:16 | Electrocardiogram Report ---
Test Reason : Blood Pressure : */* mmHG Vent. Rate : 107 BPM Atrial Rate : 107 BPM P-R Int : 152 ms QRS Dur : 102 ms QT Int : 354 ms P-R-T Axes : 78 54 70 degrees QTcB Int : 472 ms Sinus tachycardia Possible Left atrial enlargement Incomplete right bundle branch block Borderline ECG No previous ECGs available Confirmed by Don Ackerman ([id number]) on 11/16/2024 6:16:35 AM Referred By: REFERRED SELF Confirmed By: Don Ackerman
[2024-11-16] MEDS ORDERED: PLASMA-LYTE A 1,000 ML IV SCH (07:00)
--- NOTE | 2024-11-16 07:20 | Hospitalist Progress Note ---
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 Mentions having access to insulin, but was having delays with receiving insulin pump supplies and hasn't used his pump since August. Has improved since admission yesterday, there are concerns of executive functioning and whether patient is able to care for himself on his own for his chronic medical conditions, thus conversations will be ongoing with family and case management regarding long- term planning and support. #Diabetic Ketoacidosis, resolving #DM1, poorly controlled Assessment: Came in due to DKA as a result of not having access to insulin pump supplies at home and has been responding well to inpatient treatment of IVF, insulin, and KCl supplementation. Will transition to SQ insulin and continue to monitor labs given decreasing potassium and phosphate, and risk for acidosis. All relevant labs improving: Glucose 128 this AM, Lactate 1.0, anion gap 9 (resolved). Bicarb increased to 13 this AM. Plan: - D/C IV insulin, switch to SQ injections - pending pharmacy recs for dosing - Switch from NS to LR - Continue trending electrolytes and repeat VBG ordered to continue trending - KCl 40 mg tablet administered this AM, consider repleting phosphate if it drops below 1 Repleting phosphate for <1 with potassium phosphate piggyback on LR Phos level 23:00 #Leukocytosis, improving Assessment: WBCs 35.35 initially, reported to have some vomiting and possible urinary retention however those symptoms have improved. Leukocytosis likely due to metabolic acidosis causing bodily stress. He was given IV ceftriaxone empirically, but then d/c given no infectious symptoms. No sign of infection today. Plan: - Continue trending CBC, WBC today 20.35 and downtrending CBC AM - Blood culture negative at 24 hr delfina, pending 48 hr results #Acute Kidney Injury, resolved Assessment: Likely 2/2 dehydration, lack of kidney perfusion. Cr on admission 1.27, WNL today. Plan: - JUAN LUIS resolved as of this AM - Continue to monitor - BMP AM #Executive functioning deficit Assessment: Based on past documentation of outpatient providers and discussing with patient, there is a history of executive functioning issues, which has raised concerns in the past of medication adherence, physician follow up, and ability to care for himself on his own. Was planning to have neuropsych testing in the past, but has not been responsive to phone calls coming into fill out paperwork and his appointment. Plan: - Ongoing conversations with patient, family, case management, and outpatient clinical unit educator on long-term care and support: proceeding with neuropsych testing Will need extra help in going over pump instructions and return instructions prior to discharge, with grandfather too so he know what to look out for and to act sooner #Lyme screen positive Assessment: Had a positive screen to Lyme abs, however negative Lyme IgM and IgG. Anaplasma and Babesia also appear negative and patient does not present with signs of infectious etiology. Plan: - Continue to monitor # Familial hypercholesterolemia Assessment: Has a hx of familial hypercholesteremia and has an abnormal lipid panel. No signs of high cholesterol on physical exam. Has had issues with medication adherence of home statin. Plan: - Resumed home Rosuvastatin 40 mg #Constipation Assessment: Has had abdominal discomfort due to constipation (last BM Friday). Plan: - Colace ordered PRN #Chronic, stable: hypothyroidism- continue levothyroxine familial hypercholesterolemia- may hold statin until diet once AG resolved VTE ppx: SCDs Dispo: PCU tele Admission and Anticipated Discharge Date Admission Date: November 15, 2024 Supervising Physician Co-Signing Physician Notes I personally examined the patient and verified all gallegos points of history and exam, discussed case, and agree with decision making with Dr Plata Feeling much better overall. Still reticent to eatworried that he will be nauseatedbut to be clear he has not vomited today. Hurts all overrelates it to vomiting so much before. Vitals noted, in general he is awake and alert pleasant no distress. HEENT normocephalic atraumatic mucous membranes moist. Suboccipitals high tone, tender, decreased range of motionOMT done by Dr. Plata. Breathing unlabored no accessory muscle use good effort. Skin without rashes pallor or icterus. Neuro without focal deficits. DKA Due to lack of insulin. He notes that he ran out of pump supplies sometime in August for what he believes to be bureaucratic reasons, and then ran out of needles for his glargine about 3 days prior to admission. DKA improving. Continue IV fluids and insulin management. Will ask case management and endocrine to assist in trying to remedy what ever happened with him losing his diabetic supplies. Lyme screen positivenonspecific, no clear symptoms, but we are in an endemic area. Follow labs and treat if positive. Otherwise as above. Terrence Hartman was seen at bedside this AM, feels better compared to yesterday, but does endorse fatigue. Does not recall any tick bites or abnormal rashes, but has had numerous flea bites at home lately because of a flea infestation. Does not report any itchiness today but states when it is itchy he uses benadryl and hydrocortisone creams. He endorses access to health insurance, insulin and insulin supplies, and follows with endocrinology. He mentioned having issues with accessing his insulin pump supplies and has run out since August. Review of Systems Review of Systems: As noted in HPI. Physical Exam Physical Exam: Constitutional: A&Ox3, appearing in no acute distress HEENT: moist oral mucus membranes; EOM intact, anicteric sclerae CV: slightly tachycardic regular rhythm, +s1/s2, no m/r/g, radial pulses 2+ b/l Respiratory: clear to auscultation b/l, no w/r/R GI/Abd: +BS, abdomen soft, no hepatosplenomegaly, nondistended, nontender to palpation MSK: 5/5 strength in b/l UE and LE, no gross deformities; no pitting edema of LE Skin: mild papular rash to lower half of b/l LE without base of erythema/swelling/warmth Neuro: no facial droop, no focal deficits, wiggles toes on command Results & Data Results & Data Vital Signs (Past 12 Hours) Vital Signs Temp Pulse Pulse Resp BP Pulse Ox O2 Del Method 11/16/24 03:26 36.8 C 104 H 20 119/66 98 Room Air 11/15/24 22:41 36.5 C 106 H 20 110/68 100 Room Air 11/15/24 22:38 104 H 11/15/24 19:34 36.2 C L 114 H 20 124/88 100 Room Air Resident Activity Tracking Resident Involvement: Resident Care Provided Care Provided: Adult Hospital Medicine (1) DKA (diabetic ketoacidosis) Diabetes mellitus complication detail: without coma Diabetes mellitus type: type 1 Qualified Code(s): E10.10 - Type 1 diabetes mellitus with ketoacidosis without coma (2) Diabetes mellitus type 1, uncontrolled Glycemic state: with hyperglycemia Qualified Code(s): E10.65 - Type 1 diabetes mellitus with hyperglycemia
[2024-11-16] MEDS: POTASSIUM CHLORIDE CRTAB 20 MEQ TABCR PO STA (07:36)
[2024-11-16 08:39] LABS: Hematocrit (blood only) 42.8 % (42.0-52.0); Hemoglobin 14.8 g/dl (14.0-18.0); Mean Corpuscular Hemoglobin 28.9 pg (25.0-34.0); Mean Corpuscular Volume 83.6 fL (80.0-100.0); Platelet Count 218 K/uL (130-400); RDW Standard Deviation 37.5 fL (36.4-46.3); Red Blood Count 5.12 M/uL (4.70-6.10); White Blood Count 20.36 K/ul (4.8-10.8)
[2024-11-16 08:43] LABS: Anion Gap 8.0 (3-11); Blood Urea Nitrogen 14.0 mg/dl (6-23); Calcium 8.6 mg/dl (8.6-10.3); Carbon Dioxide 13.0 mmol/L (21-32); Chloride 117.0 mmol/L (98-107); Creatinine Clr Calc Pharmacy 130.6 ml/min; Glucose 128.0 mg/dl (70-99(Fasting)); Potassium 3.3 mmol/L (3.5-5.1); Sodium 138.0 mmol/L (136-145)
[2024-11-16 08:50] LABS: Magnesium 1.9 mg/dl (1.7-2.4)
[2024-11-16] MEDS ORDERED: POT PHOSPHATE MONOBASIC W/ SOD TAB PO SCH (09:00)
[2024-11-16] MEDS: DOCUSATE SODIUM 100 MG CAP PO ONE (09:12)
[2024-11-16 10:09] LABS: Base Excess VBG -12.5 mEq/L; HCO3 VBG 13 mmol/L; Oxygen Saturation VBG 89.0 %; PCO2 VBG 28 mmHg (38-50); PO2 VBG 47 mmHg; pH VBG 7.27 (7.36-7.41)
[2024-11-16 10:29] LABS: Anion Gap 7.0 (3-11); Blood Urea Nitrogen 13.0 mg/dl (6-23); Calcium 8.4 mg/dl (8.6-10.3); Carbon Dioxide 14.0 mmol/L (21-32); Chloride 116.0 mmol/L (98-107); Creatinine Clr Calc Pharmacy 140.9 ml/min; Glucose 131.0 mg/dl (70-99(Fasting)); Potassium 3.3 mmol/L (3.5-5.1); Sodium 137.0 mmol/L (136-145)
[2024-11-16] MEDS: DEXTROSE 50% 50 ML SYRINGE IV ONE (11:33)
[2024-11-16] MEDS: ROSUVASTATIN CALCIUM 20 MG TAB PO SCH (11:34)
[2024-11-16] MEDS: LANTUS PER UNIT CHARGE SC ONE (11:37)
[2024-11-16] MEDS ORDERED: KETOROLAC TROMETHAMINE 15 MG/ML VIAL IV PRN (12:01)
--- NOTE | 2024-11-16 12:27 | Pharmacy Report ---
Pharmacy Glycemic Short Note 2 - Date of Service November 16, 2024 - Glycemic Short BSG Results (Last 24 hours): 11/15/24 11/15/24 11/15/24 12:01 12:58 14:01 Glucose 302 H* POC Glucose 424 H* 367 H* 11/15/24 11/15/24 11/15/24 14:02 14:59 15:55 Glucose POC Glucose 289 H 223 H 231 H 11/15/24 11/15/24 11/15/24 17:02 17:55 17:59 Glucose 206 H POC Glucose 200 H 184 H 11/15/24 11/15/24 11/15/24 19:54 21:33 21:55 Glucose 181 H POC Glucose 190 H 179 H 11/15/24 11/16/24 11/16/24 23:52 01:44 01:48 Glucose 170 H POC Glucose 158 H 156 H 11/16/24 11/16/24 11/16/24 03:51 05:34 07:53 Glucose 155 H 128 H POC Glucose 155 H 11/16/24 11/16/24 11/16/24 08:08 08:53 09:53 Glucose 131 H POC Glucose 132 H 125 H 11/16/24 11/16/24 10:07 11:11 Glucose POC Glucose 117 H 127 H OUTPATIENT ANTIDIABETIC REGIMEN: * Lantus 30 units SC daily * Novolog SC AC: CF 20, CR 7, BSG goal 90-120 mg/dL * Previously on insulin pump but ran out of pump supplies so has been doing MDI per Diabetes visit from 10/20/24 - plan is for patient to start Dexcom and insulin pump soon HbA1c: * 10.5% (10/19/24) ASSESSMENT: 11/16 * Anion gap has closed, on last set of labs vpH 7.27, Bicarb 16. Discussed with provider continuing insulin infusion until pH >=7.3, Bicarb >=18. As patient is improving suspect criteria to be met on next set of labs. Since overlap with basal is ~2 hours, wishes to transition to subQ insulin now. * Ordered 25 units of lantus x 1 * Ordered carb ratio as patient to start clears with lunch * Will monitor for transition to subq, will decrease insulin rate if dextrose infusion stopped prior to transition off of drip. 11/15 * 29 yo M admitted on 11/15/24 secondary to diabetic ketoacidosis. Pharmacy has been consulted to assist with inpatient glycemic management. Patient is a Type 1 diabetic as an outpatient. Please refer to outpatient regimen and most recent HbA1c above. * Admission labs: * Potassium 5.1, CO2 2, Anion Gap 29, SCr 1.42, BSG 503, Lactate 3.8, Procalcitonin 1.90, VBG pH < 7, urine ketones 4+ * Patient has received 4 L of NS and now being started on Plasmalyte A at 150 mL/hr. Pending orders to add dextrose and potassium to fluids on board. IV insulin infusion started at 8.1 units/hr, went up to 9.7 units/hr, now running at 7.8 units/hr. BSGs have been [phone] mg/dL. * Patient is currently confused and NPO. All history obtained from recent diabetes visit. perioperative educator consulted. * Will continue with IV insulin infusion for the foreseeable future. Will give a small dose of Lantus so basal is on board in case transition can occur alexandre orrow morning. PLAN FOR INPATIENT GLYCEMIC CONTROL: * IV insulin infusion * Goal BSG 110-180 mg/dL * Current rate: 1.5 units/hr * Basal insulin * Lantus 25 units SC x 1 * Bolus insulin * NovoLog per scale ACHS or Q6hrs while NPO * Goal Range: Low 110 mg/dL - High 180 mg/dL - per calculator for now * Correction Factor: -- mg/dL/unit --- per insulin drip for now plan to transition to 30 mg/dL/unit * Nutritional / Prandial insulin per carb ratio of 1 unit per 10 grams CHO consumed
--- NOTE | 2024-11-16 13:21 | Billing Data ---
Date of Service November 16, 2024 Coding Level of Care Code 32316 SUB INP/OBS CARE MIN
[2024-11-16] MEDS: DICLOFENAC SOD 1% GEL 100 GM TUBE EXT SCH (13:22)
[2024-11-16] MEDS: INSULIN ASPART PER UNIT CHARGE SC SCH ×2 (13:32→23:59)
[2024-11-16] MEDS: LACTATED RINGER'S 1,000 ML IV SCH (14:04)
[2024-11-16] MEDS: INSULIN ASPART PER UNIT CHARGE SC STA (15:19)
[2024-11-16 17:09] LABS: Base Excess VBG -9.4 mEq/L; HCO3 VBG 16 mmol/L; Oxygen Saturation VBG 64.8 %; PCO2 VBG 31 mmHg (38-50); PO2 VBG 31 mmHg; pH VBG 7.31 (7.36-7.41)
[2024-11-16] MEDS: FAMOTIDINE 20 MG TAB PO SCH (17:11)
[2024-11-16 17:29] LABS: Anion Gap 9.0 (3-11); Blood Urea Nitrogen 9.0 mg/dl (6-23); Calcium 8.6 mg/dl (8.6-10.3); Carbon Dioxide 15.0 mmol/L (21-32); Chloride 114.0 mmol/L (98-107); Creatinine Clr Calc Pharmacy 149.3 ml/min; Glucose 201.0 mg/dl (70-99(Fasting)); Potassium 3.5 mmol/L (3.5-5.1); Sodium 138.0 mmol/L (136-145)
[2024-11-16] MEDS ORDERED: POTASSIUM PHOS 3 MMOL/1 ML INFUSION IV STA ×2 (17:51→18:39)
[2024-11-16] MEDS ORDERED: SODIUM PHOSPHATE 3 MMOL/1 ML INFUSION IV STA (17:56)
[2024-11-16] MEDS: POTASSIUM PHOSPHATE 30 MMOL in SODIUM CHLORIDE 0.9% 500 ML IV ONE (19:18)
[2024-11-16] MEDS: MAGNESIUM SULFATE / D5W 1 GM/100 ML BAG IV ONE (21:09)
[2024-11-16 23:25] LABS: Anion Gap 10.0 (3-11); Blood Urea Nitrogen 8.0 mg/dl (6-23); Calcium 8.7 mg/dl (8.6-10.3); Carbon Dioxide 17.0 mmol/L (21-32); Chloride 110.0 mmol/L (98-107); Creatinine Clr Calc Pharmacy 147.5 ml/min; Glucose 248.0 mg/dl (70-99(Fasting)); Potassium 3.3 mmol/L (3.5-5.1); Sodium 137.0 mmol/L (136-145)
[2024-11-17] MEDS ORDERED: POTASSIUM PHOS 3 MMOL/1 ML INFUSION IV STA (00:03)
[2024-11-17] MEDS: POTASSIUM PHOSPHATE 6 MMOL in SODIUM CHLORIDE 0.9% 100 ML IV ONE (01:29)
[2024-11-17 06:28] LABS: Hematocrit (blood only) 36.7 % (42.0-52.0); Hemoglobin 12.7 g/dl (14.0-18.0); Mean Corpuscular Hemoglobin 28.7 pg (25.0-34.0); Mean Corpuscular Volume 83.0 fL (80.0-100.0); Platelet Count 188 K/uL (130-400); RDW Standard Deviation 38.4 fL (36.4-46.3); Red Blood Count 4.42 M/uL (4.70-6.10); White Blood Count 9.21 K/ul (4.8-10.8)
[2024-11-17 06:29] LABS: Anion Gap 8.0 (3-11); Blood Urea Nitrogen 7.0 mg/dl (6-23); Calcium 8.4 mg/dl (8.6-10.3); Carbon Dioxide 20.0 mmol/L (21-32); Chloride 113.0 mmol/L (98-107); Creatinine Clr Calc Pharmacy 169.5 ml/min; Glucose 184.0 mg/dl (70-99(Fasting)); Magnesium 2.0 mg/dl (1.7-2.4); Potassium 3.4 mmol/L (3.5-5.1); Sodium 141.0 mmol/L (136-145)
[2024-11-17] MEDS: LANTUS PER UNIT CHARGE SC SCH (08:22)
--- NOTE | 2024-11-17 12:03 | Pharmacy Report ---
Pharmacy Glycemic Short Note 2 - Date of Service November 17, 2024 - Glycemic Short BSG Results (Last 24 hours): 11/16/24 11/16/24 11/16/24 12:11 13:08 15:04 Glucose POC Glucose 173 H 172 H 213 H 11/16/24 11/16/24 11/16/24 16:25 16:57 20:03 Glucose 201 H POC Glucose 166 H 237 H 11/16/24 11/16/24 11/17/24 22:41 23:53 03:52 Glucose 248 H POC Glucose 208 H 160 H 11/17/24 11/17/24 11/17/24 05:32 07:17 11:20 Glucose 184 H POC Glucose 199 H 260 H OUTPATIENT ANTIDIABETIC REGIMEN: * Lantus 30 units SC daily * Novolog SC AC: CF 20, CR 7, BSG goal 90-120 mg/dL * Previously on insulin pump but ran out of pump supplies so has been doing MDI per Diabetes visit from 10/20/24 - plan is for patient to start Dexcom and insulin pump soon HbA1c: * 10.5% (10/19/24) ASSESSMENT: 11/17 * Transitioned off insulin drip around 1500 on 11/16. Glucose ranged in mid-200s. * Glucose above goal range of 110-140 with 25 units of Lantus and CF of 30, CR of 10. * Increased Lantus to 28 this AM and tightened CF to 25 and CR of 6 (per patient request). 11/16 * Anion gap has closed, on last set of labs vpH 7.27, Bicarb 16. Discussed with provider continuing insulin infusion until pH >=7.3, Bicarb >=18. As patient is improving suspect criteria to be met on next set of labs. Since overlap with basal is ~2 hours, wishes to transition to subQ insulin now. * Ordered 25 units of lantus x 1 * Ordered carb ratio as patient to start clears with lunch * Will monitor for transition to subq, will decrease insulin rate if dextrose infusion stopped prior to transition off of drip. 11/15 * 29 yo M admitted on 11/15/24 secondary to diabetic ketoacidosis. Pharmacy has been consulted to assist with inpatient glycemic management. Patient is a Type 1 diabetic as an outpatient. Please refer to outpatient regimen and most recent HbA1c above. * Admission labs: * Potassium 5.1, CO2 2, Anion Gap 29, SCr 1.42, BSG 503, Lactate 3.8, Procalcitonin 1.90, VBG pH < 7, urine ketones 4+ * Patient has received 4 L of NS and now being started on Plasmalyte A at 150 mL/hr. Pending orders to add dextrose and potassium to fluids on board. IV insulin infusion started at 8.1 units/hr, went up to 9.7 units/hr, now running at 7.8 units/hr. BSGs have been [phone] mg/dL. * Patient is currently confused and NPO. All history obtained from recent diabetes visit. nurse educator consulted. * Will continue with IV insulin infusion for the foreseeable future. Will give a small dose of Lantus so basal is on board in case transition can occur tomorrow morning. PLAN FOR INPATIENT GLYCEMIC CONTROL: * Basal insulin * Lantus 28 units QAM * Bolus insulin * NovoLog per scale ACHS or Q6hrs while NPO * Goal Range: Low 110 mg/dL - High 140 mg/dL * Correction Factor: 25 mg/dL/unit * Nutritional / Prandial insulin per carb ratio of 1 unit per 6 grams CHO consumed
--- NOTE | 2024-11-17 13:58 | Discharge Summary ---
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 States he started feeling bad 2-3 days ago with abdominal pain, vomiting, and generalized weakness. Was brought in today by grandfather but he is not present at current encounter. States he has an insulin pump but not sure if it has been functioning properly. Notes he has felt like this previously, but hasn't gotten this bad before. Currently noting pain "all over" especially the bottom of his ribs, sore throat, and significant thirst. No nausea, vomiting, or abdominal pain at htis time. States he usually has to take "at least 72" units of insulin per day combined long- and short-acting. Denies recent fever, headache, neck pain, dysuria. ER course: 1L NS bolus x3 - started on insulin at 6.2 units/hr - started on ceftriaxone - morphine 1mg IV Living situ: lives in private home with grandfather, however based on pt's low level of executive functioning likely doesn't have the support he needs Admission Exam Per Admitting Provider Constitutional: A&Ox3, appearing in moderate distress, tachypneic HEENT: dry oral mucus membranes; EOM intact, anicteric sclerae CV: tachycardic regular rhythm, +s1/s2, no m/r/g, radial pulses 2+ b/l Respiratory: clear to auscultation b/l, no w/r/R GI/Abd: +BS, abdomen soft, no hepatosplenomegaly, nondistended, nontender to palpation MSK: 5/5 strength in b/l UE and LE, no gross deformities Skin: mild papular rash to lower half of b/l LE without base of erythema/swelling/warmth Neuro: no facial droop, no focal deficits, wiggles toes on command Principal Diagnosis DKA, DM 1 Discharge Exam Constitutional: A&Ox3, appearing in no acute distress HEENT: moist oral mucus membranes; EOM intact, anicteric sclerae CV: slightly tachycardic regular rhythm, +s1/s2, no m/r/g, radial pulses 2+ b/l Respiratory: clear to auscultation b/l, no w/r/R GI/Abd: +BS, abdomen soft, no hepatosplenomegaly, nondistended, nontender to palpation MSK: 5/5 strength in b/l UE and LE, no gross deformities; no pitting edema of LE Skin: mild papular rash to lower half of b/l LE without base of erythema /swelling/warmth Neuro: no facial droop, no focal deficits, wiggles toes on command Discharge Data Allergies Allergy/AdvReac Type Severity Reaction Status Date / Time No Known Drug Allergies Allergy Verified 11/15/24 12:00 Consultations 11/15/24 12:57 ED Decision to Admit Stat Ordered Studies 11/15/24 11:54 CT Abd and Pelvis [CT abd pelvis IV con only] Stat Hospital Course (1) DKA (diabetic ketoacidosis): (2) Diabetes mellitus type 1, uncontrolled: (3) Executive function deficit: (4) JUAN LUIS (acute kidney injury): Noe Hartman is a 29yo M with PMHx diabetes mellitus type 1 on insulin pump, 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 Mentions having access to insulin, but was having delays with receiving insulin pump supplies and hasn't used his pump since August. Has improved since admission yesterday. Discussed diabetes type 1 management with patient and grandparents at length, ultimately signed form to pursue neuropsychiatric testing, which will help formulate an appropriate plan for care of his chronic conditions. He was successfully treated for DKA, and since he is now medically stable and has clinically improved significantly, we feel comfortable with his discharge home today. #Diabetic Ketoacidosis, resolved #DM1, previously poorly controlled Assessment: Came in due to DKA as a result of not having access to insulin pump supplies at home and has been responding well to inpatient treatment of IV fluids, insulin, potassium, and phosphate supplementation. - All relevant labs improving: Glucose still elevated but overall improving and no longer symptomatic, Lactate resolved, anion gap resolved - most recent A1c: 10.5 in late September -> next A1c around 01/22/25 Plan: - Continue long-acting insulin 30 units daily, short-acting insulin with meals, account for snacks as well - prescribed insurance-compatible test strips, lancets, syringes, 0.3mL, 31 gauge x 15/64 (6mm), all for 4x daily use - additionally given paper scripts as backups for the above test strips, lancets, syringes, and insulin glargine - [facility] supply [facility], but may us paper rx to peanut picker at any outside pharmacy - Given 2 Dexcom G7 devices for home use - coordinating obtaining insulin pump via [facility] #Leukocytosis (elevated white blood cells), resolved Now fully resolved. Was likely due to metabolic acidosis causing bodily stress. - He was given IV ceftriaxone (antibiotic) empirically, but then discontinued given no infectious symptoms. No sign of infection today. Plan: n/a #Acute Kidney Injury, resolved Assessment: Likely due to dehydration that comes with DKA Plan: continue good hydration, good management of blood sugar as above #Executive functioning deficit Assessment: Based on past documentation of outpatient providers and discussing with patient, there is a history of executive functioning issues, which has raised concerns in the past of medication adherence, physician follow up, and ability to care for himself on his own. - Proceeding with neuropsychiatric testing in order to compose a diabetes care plan based on strengths, paperwork completed and signed - Extra help in going over pump instructions and return instructions prior to discharge, with grandparents too so they know what to look out for and to act sooner # Familial hypercholesterolemia Assessment: Has a hx of familial hypercholesteremia and has an abnormal lipid panel. No signs of high cholesterol on physical exam. Has had issues with medication adherence of home statin. Plan: - Continue home Rosuvastatin 40 mg #Lyme screen positive Assessment: Had a positive screen to Lyme abs, however negative Lyme IgM and IgG. Anaplasma and Babesia also appear negative and patient does not present with signs of infectious etiology. Plan: - Continue to monitor in the outpatient setting Total Time Total Time Spent Total Time Spent (In Minutes): <30 Discharge Plan Discharge Items Patient Disposition: Home - Self-Care Reason For Visit: AMS,DKA Discharge Diagnosis: DKA, poorly controlled DM1 Condition on Discharge: Fair Health Concerns: managing DM1 devices and insulin Activity: Per Instructions section Non-emergency contact: Primary Care Provider Call non-emergency contact if: your symptoms worsen and your pain is not controlled Follow-up/Referrals: Araceli Macias MD [Primary Care Provider] - 11/26/24 9:00 am (with Nadya Allen PA-C) Diet: Carb Count or DM1 Addtl Attending Provider Instructions: You were treated at [facility] for DKA (diabetic ketoacidosis) due to lack of insulin at home due to device/needle dysfunction. Since you are now medically stable and have clinically improved significantly, we feel comfortable with your discharge home today. Please pay careful attention to the following to ensure you keep your blood sugar within healthy range and avoid future hospital visits for DKA. #Diabetic Ketoacidosis, resolved #DM1, previously poorly controlled Assessment: Came in due to DKA as a result of not having access to insulin pump supplies at home and has been responding well to inpatient treatment of IV fluids, insulin, potassium, and phosphate supplementation. - All relevant labs improving: Glucose still elevated but overall improving and no longer symptomatic, Lactate resolved, anion gap resolved - most recent A1c: 10.5 in late September -> next A1c around 01/22/25 Plan: - Continue long-acting insulin 30 units daily, short-acting insulin with meals, account for snacks as well - prescribed insurance-compatible test strips, lancets, syringes, 0.3mL, 31 gaug e x 15/64 (6mm), all for 4x daily use - additionally given paper scripts as backups for the above test strips, lancets, syringes, and insulin glargine - [facility], but may us paper rx to peanut picker at any outside pharmacy - Given 2 Dexcom G7 devices for home use - Had 3pm appointment with endo today 11/17/24 #Leukocytosis (elevated white blood cells), resolved Now fully resolved. Was likely due to metabolic acidosis causing bodily stress. - He was given IV ceftriaxone (antibiotic) empirically, but then discontinued given no infectious symptoms. No sign of infection today. Plan: n/a #Acute Kidney Injury, resolved Assessment: Likely due to dehydration that comes with DKA Plan: continue good hydration, good management of blood sugar as above #Executive functioning deficit Assessment: Based on past documentation of outpatient providers and discussing with patient, there is a history of executive functioning issues, which has raised concerns in the past of medication adherence, physician follow up, and ability to care for himself on his own. - Proceeding with neuropsychiatric testing in order to compose a diabetes care plan based on strengths, paperwork completed and signed - Extra help in going over pump instructions and return instructions prior to discharge, with grandparents too so they know what to look out for and to act sooner # Familial hypercholesterolemia Assessment: Has a hx of familial hypercholesteremia and has an abnormal lipid panel. No signs of high cholesterol on physical exam. Has had issues with medication adherence of home statin. Plan: - Continue home Rosuvastatin 40 mg #Lyme screen positive Assessment: Had a positive screen to Lyme abs, however negative Lyme IgM and IgG. Anaplasma and Babesia also appear negative and patient does not present with signs of infectious etiology. Plan: - Continue to monitor Pending Studies at Discharge: No Stand-Alone Forms: [facility] [employer], Smoking Cessation Medications and DC Order Prescriptions: New (DME) lancets [Accu-Chek Fastclix Lancet Drum] Misc See Rx Instructions .Route Qty: 102 5RF Rx Instructions: As directed: testing frequency 4x per day (DME) insulin syringe-needle U-100 0.3 mL 31 gauge x 15/64" syringe See Rx Instructions .Route Qty: 100 5RF Rx Instructions: As directed: 6mm- to inject 4x per day Continued Gvoke HypoPen 1-Pack 1 mg/0.2 mL auto-injector 1 mg subcut ONCE Qty: 0.2 0RF Rx Instructions: as needed for hypoglycemia rosuvastatin 40 mg tablet 40 mg PO DAILY Qty: 90 3RF levothyroxine 100 mcg tablet 0 mcg PO DAILY Patient Comments: Unable to verify w/ pt at this date/time. Not on file w/ Pharmacy. Original D irections: 100mcg by mouth once daily. 11/15/24 cholecalciferol (vitamin D3) 1,250 mcg (50,000 unit) capsule 0 unit PO WK Patient Comments: Unable to verify w/ pt at this date/time. Per pharmacy, never filled. Original Directions: 50,000 unit once weekly. 11/15/24 (DME) Accu-Chek Guide test strips Strip See Rx Instructions .Route Qty: 120 5RF Rx Instructions: test 4 times daily insulin glargine 100 unit/mL solution 30 unit subcut DAILY Qty: 10 3RF Rx Instructions: back up for pump failure Discontinued (DME) pen needle, diabetic [BD Ultra-Fine Christine Pen Needle] 32 gauge x 5/32" needle See Rx Instructions .ROUTE .MEDSUPPLY Qty: 90 0RF Rx Instructions: once daily for pump failure insulin glargine U-300 conc [Toujeo SoloStar U-300 Insulin] 300 unit/mL (1.5 mL) insulin pen 0 unit subcut DIRECTED 0RF Patient Comments: Unable to verify w/ pt at this date/time. Not on file w/ Pharmacy. Original Directions: 0 units subcut as directed. 11/15/24 (DME) insulin syringe-needle U-100 [BD SafetyGlide Insulin Syringe] 0.5 mL 30 gauge x 5/16" syringe See Rx Instructions .ROUTE .MEDSUPPLY Rx Instructions: use 4 per day insulin aspart U-100 [Novolog U-100 Insulin aspart] 100 unit/mL solution 1 sliding scale dose subcut DIRECTED Rx Instructions: subcutaneously inject 1 unit per 7 carbs; TDD 110 units; No Action insulin lispro 100 unit/mL solution 110 unit continuous subcutaneous infusion DAILY Qty: 40 3RF Rx Instructions: inject 1 unit per 6 carbs; TDD up to 110 units subcut use as directed; (DME) Ketone Urine Test Strip See Rx Instructions .ROUTE .MEDSUPPLY Qty: 25 3RF Rx Instructions: use to monitor for ketone with hyperglycemia Discharge Orders: Discharge Order (Routine); Ordered 11/17/24 Ordered By: Bahman Hernandez/Other Patient Handouts: Diabetes: Caring for Your Body, Diabetes: Sick- Day Plan, Diabetes: The Benefits of Exercise, Diabetes: Activity Tips, Diabetes: Driving Issues, Diabetes: Living Your Life, Diabetes: Meal Planning, Diabetes: Ways to Take Medicine, Diabetic Ketoacidosis, Diabetes- Measuring Glucose at Home Admission Data Admit Date/Time: 11/15/24 13:38 Attending Provider: Jamie Horvath Admit Provider: Bahman Plata V. Primary Care Provider: Araceli Macias Other Providers: Robe Reece Other Interventions: Discharge Summary Assessment (RN) Last Done: 11/17/24 14:50 Supervising Physician Co-Signing Physician Notes I personally examined the patient and verified all gallegos points of history and exam, discussed case, and agree with decision making with Dr Plata Feels good. Feels up to going home. Appears that insulin issues have been rectified. Vitals noted, in general he is awake and alert pleasant no distress. HEENT normocephalic atraumatic mucous membranes moist. Breathing unlabored no accessory muscle use good effort. Skin without rashes pallor or icterus. Neuro without focal deficits. DKA Due to lack of insulin. He notes that he ran out of pump supplies s ometime in August for what he believes to be bureaucratic reasons, and then ran out of needles for his glargine about 3 days prior to admission. DKA Improved. Diabetic supplies represcribed. Imparted to patient the critical importance of not running out of insulin, and should he ever run out of insulin again to immediately come to the ER. Has community health educator appointment immediately after discharge (leaving the hospital at 2:45 PM, appointment across the street at 3 PM) and PCP appointment next week. In addition to prescribing supplies electronically, he was given hardcopy prescriptions as a failsafe. Lyme screen positivenonspecific, no clear symptoms, but we are in an endemic area. Follow labs and treat if positive. Otherwise as above. Resident Activity Tracking Resident Involvement: Resident Care Provided Care Provided: Adult Hospital Medicine
--- NOTE | 2024-11-17 18:04 | Billing Data ---
Date of Service November 17, 2024 Coding Level of Care Code 49797 IN/OBS DISCH 30 MIN/LESS
== END 2024-11-17 15:00 | disposition home or self-care (01) | DRG 638 ==
LOC: ED 10:07 → 2E 13:38
DX: Z91.148 Patient's other noncompliance with medication regimen for other reason; E78.01 Familial hypercholesterolemia; K59.00 Constipation, unspecified; R41.844 Frontal lobe and executive function deficit; Z79.4 Long term (current) use of insulin; Z96.41 Presence of insulin pump (external) (internal); E06.3 Autoimmune thyroiditis; E03.8 Other specified hypothyroidism; Z79.890 Hormone replacement therapy; R79.89 Other specified abnormal findings of blood chemistry; T38.3X6A Underdosing of insulin and oral hypoglycemic [antidiabetic] drugs, initial encounter; D72.829 Elevated white blood cell count, unspecified; Z79.899 Other long term (current) drug therapy; E10.10 Type 1 diabetes mellitus with ketoacidosis without coma; E86.0 Dehydration; N17.9 Acute kidney failure, unspecified